=== PATIENT | female | born 2005 | race African-American/Black ===

== ENCOUNTER 2024-10-23 13:38 | Emergency (ER) | payer BC, SELFPAY ==
--- NOTE | 2024-10-23 13:39 | ED.URI ---
HPI - URI/Sore Throat General Chief Complaint: Upper Respiratory Infection Stated Complaint: COUGH/SOB Source: patient and RN notes reviewed Mode of arrival: ambulatory Limitations: no limitations History of Present Illness HPI Narrative: Patient is a 18-year-old female who presents to the [facility] with complaints of cough, congestion, and fever since yesterday morning. Patient endorses a frequent nonproductive cough. Denies chest pain or shortness of breath. Reports nasal congestion and postnasal drip. Reports low-grade fevers at home. Patient is currently afebrile. Respirations are unlabored. Unsure of any known sick contacts. Related Data Home Medications ?Medication ?Instructions ?Recorded ?Confirmed ?Last Taken ?Type phentermine 15 mg capsule mg 10/23/24 Unknown History Allergies Allergy/AdvReac Type Severity Reaction Status Date / Time No Known Allergies Allergy Verified 10/23/24 13:53 Review of Systems Review of Systems: CONSTITUTIONAL: Reports fever, chills, and sweats. EYES: Denies visual changes, redness, or discharge. ENT: Denies otalgia. Reports post nasal drip. Reports congestion. CARDIOVASCULAR: Denies chest pain, palpitations, or edema. RESPIRATORY: Reports cough. GASTROINTESTINAL: Denies abdominal pain, nausea, vomiting, or diarrhea. GENITOURINARY: Denies dysuria or hematuria. SKIN: Denies rash or itching. MUSCULOSKELETAL: Denies back pain, joint pain, or myalgia. NEUROLOGIC: Denies headache, numbness, or weakness. Pertinent positives per HPI. PMF[facility] Comments At the time of my signature, I reviewed and agree with the nursing past medical, surgical, social, and family history. There is no relevant family history pertinent to the patient complaint. Exam Narrative: GENERAL: This is a well-nourished, well-developed patient, in no apparent distress. HEAD: normocephalic, atraumatic. EYES: Sclera clear/white. Vision is grossly intact. EARS: External ears normal. Hearing grossly intact. NOSE: External nose normal with no obvious nasal discharge, nares without redness, no rhinorrhea. THROAT: Mucous membranes moist, posterior pharynx clear. NECK: Neck supple, non-tender without lymphadenopathy, masses or thyromegaly. CARDIOVASCULAR: Regular rate and rhythm without murmurs, gallops, or rubs. RESPIRATORY: Clear to auscultation. Breath sounds equal bilaterally. No wheezes, rales, or rhonchi. GASTROINTESTINAL: Abdomen soft, non-tender, nondistended. Bowel sounds are active. No hepato-splenomegaly, or palpable masses. No guarding. SKIN: warm, intact with no suspicious lesions or rash, good texture and turgor. NEURO: awake, alert, and oriented to person, place and time. There were no obvious focal neurologic abnormalities. Course Course Level of Care: Express Care Visit Vital Signs Vital signs: Vital Signs Temperature 96.8 F L 10/23/24 13:52 Pulse Rate 114 H 10/23/24 13:52 Respiratory Rate 18 10/23/24 13:52 Blood Pressure 128/80 10/23/24 13:52 Pulse Oximetry 100 10/23/24 13:52 Temperature 96.8 F L 10/23/24 13:52 Pulse Rate 114 H 10/23/24 13:52 Respiratory Rate 18 10/23/24 13:52 Blood Pressure 128/80 10/23/24 13:52 Pulse Oximetry 100 10/23/24 13:52 Reviewed MDM - URI/Sore Throat MDM Narrative Medical decision making narrative: Take steroids as directed. May use the inhaler every 4-6 hours as needed for coughing. Increase fluids at home. Avoid any and all smoke. May use a humidifier in the bedroom. Increase your Vitamin C. Follow-up with personal physician in 2-5 days. Differential Diagnosis Differential diagnosis: Likely upper respiratory infection, viral infection, bronchitis, influenza and other (covid) Lab Data Attestation: I reviewed the patient's lab results. Critical Care Time Critical Care Time Critical Care Time: No Discharge Plan Discharge Clinical Impression: Acute viral bronchitis Patient Disposition: Home, Self-Care Condition: Stable Instructions: Acute Bronchitis (ED) Additional Instructions: Take steroids as directed. May use the inhaler every 4-6 hours as needed for coughing. Increase fluids at home. Avoid any and all smoke. May use a humidifier in the bedroom. Increase your Vitamin C. Follow-up with personal physician in 2-5 days. Patient Language: [place] Citizen Prescriptions: New prednisone 50 mg tablet 50 mg PO DAILY 5 Days Qty: 5 0RF albuterol sulfate [Ventolin HFA] 90 mcg/actuation HFA aerosol inhaler 1 puff inhalation QID PRN (Reason: shortness of breath or wheezing) Qty: 6.7 0RF benzonatate 100 mg capsule 100 mg PO BID PRN (Reason: cough) Qty: 20 0RF No Action phentermine 15 mg capsule Follow-up/Referrals: UNKNOWN,DOCTOR [Non-Staff] - Stand Alone Forms: Work/School Release IP Time of Disposition: 14:10
[2024-10-23 13:52] VITALS: BP 128/80; PULSE 114; RESP 18; TEMP 36; O2SAT 100
[2024-10-23 14:13] LABS: EDCOVIDSCREEN Negative (Negative); EDINFLUASCREEN Negative (Negative); EDINFLUBSCREEN Negative (Negative)
== END 2024-10-23 14:13 | disposition home or self-care (01) ==
PROVIDERS: Emergency Provider Nurse Practitioner
DX: J20.8 Acute bronchitis due to other specified organisms (principal); Z20.822 Contact with and (suspected) exposure to COVID-19
CPT/HCPCS: 87426; 87804; 99213; G0463

== ENCOUNTER 2025-07-08 15:00 | Emergency (ER) | payer BC, SELFPAY ==
[2025-07-08 15:09] VITALS: BP 133/81; PULSE 78; RESP 18; TEMP 36.1; O2SAT 100
[2025-07-08 15:20] LABS: EDUAAPPEAR Cloudy; EDUABILI Negative (Negative); EDUABLOOD Negative (Negative); EDUACOLOR1 Yellow; EDUAGLUCOSE Negative (Negative); EDUAKETONE Negative (Negative); EDUALEUKO Trace (Negative); EDUANITRATE Negative (Negative); EDUAPH 7.5; EDUAPROTEIN Negative (Negative); EDUASPGRAVITY 1.015; EDUAUROBILI 0.2
--- NOTE | 2025-07-08 15:34 | ED_ITS ---
HPI - Female Genitourinary General Chief complaint: Urogenital-Female Stated complaint: Uti Symptoms Time Seen by Provider: 07/08/25 15:12 Source: patient and RN notes reviewed Mode of arrival: ambulatory Limitations: no limitations History of Present Illness HPI Narrative: 19-year-old female patient presents today complaining of a 2 day history of urinary frequency and dysuria with some mild suprapubic tenderness. States she had to go to the ER a few days ago due to an accidentally retained condom in her vagina to have it removed. States after that period of time she becomes very anxious that she may have an STD and would like to be tested. Denies any discharge. Related Data Home Medications ?Medication ?Instructions ?Recorded ?Confirmed ?Last Taken ?Type phentermine 15 mg capsule mg 10/23/24 Unknown History escitalopram oxalate 10 mg tablet mg 07/08/25 Unknown History hydroxyzine HCl 25 mg tablet mg 07/08/25 Unknown Hist ory topiramate 25 mg tablet mg 07/08/25 Unknown History Allergies Allergy/AdvReac Type Severity Reaction Status Date / Time No Known Allergies Allergy Verified 07/08/25 15:02 [facility] Comments At time of signature, I have reviewed and agree with nursing past medical, surgical, social and family history unless otherwise noted. Please see nursing chart for further information. There is no relevant family history pertinent to the presenting complaint Exam Narrative: GENERAL: Well-appearing, well-nourished, and in no acute distress. HEAD: Normocephalic, atraumatic. EYES: EOMI. No redness or drainage. Conjunctivae normal. ENT: Mucous membranes pink and moist. NECK: Normal AROM. CHEST: No respiratory distress. Clear to auscultation. HEART: Regular rate and rhythm. No murmur appreciated. ABDOMEN: Soft, nontender, nondistended, normal active bowel sounds. EXTREMITIES: Normal range of motion. No edema. SKIN: Warm, dry, no rash. Capillary refill normal. Normal skin turgor. NEURO: No focal deficits. Alert and oriented x3. Gait steady. PSYCH: Normal affect. No signs of depression or anxiety. Course Course Level of Care: Express Care Visit Vital Signs Vital signs: Vital Signs Temperature 97 F L 07/08/25 15:09 Pulse Rate 78 07/08/25 15:09 Respiratory Rate 18 07/08/25 15:09 Blood Pressure 133/81 07/08/25 15:09 Pulse Oximetry 100 07/08/25 15:09 Temperature 97 F L 07/08/25 15:09 Pulse Rate 78 07/08/25 15:09 Respiratory Rate 18 07/08/25 15:09 Blood Pressure 133/81 07/08/25 15:09 Pulse Oximetry 100 07/08/25 15:09 Reviewed [facility] Narrative Medical decision making narrative: 19-year-old female patient presents today complaining of a 2 day history of urinary frequency and dysuria with some mild suprapubic tenderness. States she had to go to the ER a few days ago due to an accidentally retained condom in her vagina to have it removed. States after that period of time she becomes very anxious that she may have an STD and would like to be tested. Denies any discharge. Normal physical exam. Urinalysis shows trace leukocytes but is otherwise normal. Passed this onto patient. Based on her symptoms she would like to be treated while culture is pending. Three days of Bactrim sent pharmacy. Urine will also be sent for chlamydia, gonorrhea, and Trichomonas. Patient would like to be started on prophylactic antibiotics. She was given IM dose of 500 mg of Rocephin. Prescriptions for oral doxycycline and Flagyl sent to pharmacy. Patient agrees with plan. Vital signs stable. Anticipatory guidance given. Differential Diagnosis Differential Diagnosis: UTI, vaginitis, STI Lab Data [facility] Lab Attestation statement: I personally reviewed the patient's lab results. Labs: Lab Results 07/08/25 Range/Units 15:18 POC Urine Color Yellow POC Urine Clarity Cloudy POC Urine pH 7.5 POC Ur Specif [place] 1.015 POC Urine Protein Negative (Negative) POC Ur Glucose (UA) Negative (Negative) POC Urine Ketones Negative (Negative) POC Urine Blood Negative (Negative) POC Urine Nitrite Negative (Negative) POC Urine Bilirubin Negative (Negative) POC Urine Urobilinogen 0.2 POC U Leukocyte Esteras Trace (Negative) Critical Care Time Critical Care Time Critical Care Time: No Discharge Plan Discharge Clinical Impression: Urinary tract infection, Screen for sexually transmitted diseases Patient Disposition: Home Condition: Stable Instructions: Urinary Tract Infection in Women (ED) Additional Instructions: Your urinalysis sample at [facility] today was mildly positive for an infection. Please take the Bactrim as prescribed. Your urine sample has been sent off to test for gonorrhea, chlamydia, and trichomonas infections. These tests can take up to 24 hours to come back. You will be notified by telephone if any of your tests come back positive. You have been treated with Rocephin in urgent care today to cover you for gonorrhea. Prescriptions for Flagyl and doxycycline have been sent to your pharmacy to cover you for trichomonas and chlamydia. If any of your tests come back positive you should need no further treatment. If any of your tests come back positive, you will need to notify any partners that you have, and they will need to be tested and treated. If your tests come back negative and you are still experiencing symptoms, please follow- up with your PCP, OBGYN, or urologist for further evaluation and treatment. If your symptoms worsen to include fever, abdominal pain, or back pain, please go to the hospital immediately. Patient Language: Yi Prescriptions: New sulfamethoxazole-trimethoprim [Bactrim DS] 800-160 mg tablet 1 tablet PO Q12H 3 Days Qty: 6 0RF doxycycline hyclate 100 mg tablet 100 mg PO BID 7 Days Qty: 14 0RF metronidazole 500 mg tablet 500 mg PO BID 7 Days Qty: 14 0RF No Action phentermine 15 mg capsule topiramate 25 mg tablet hydroxyzine HCl 25 mg tablet escitalopram oxalate 10 mg tablet Follow-up/Referrals: PHYSICIAN,TAXATION AGENT [Primary Care Provider, Internal Medicine] Time of Disposition: 15:36
[2025-07-08] MEDS: cefTRIAXone 500 MG, LIDOCAINE 1% LOCAL INJ 1 ML IM (15:39)
[2025-07-08 20:40] LABS: Trichomonas Vag PCR NOT DETECTED (NOT DETECTE)
== END 2025-07-08 15:45 | disposition home or self-care (01) ==
PROVIDERS: Emergency Provider Nurse Practitioner
DX: N39.0 Urinary tract infection, site not specified (principal); Z11.3 Encounter for screening for infections with a predominantly sexual mode of transmission; F41.9 Anxiety disorder, unspecified
CPT/HCPCS: 81003; 87086; 87186; 87491; 87591; 87661; 96372; 99213; G0463; J0696; J2003